=== PATIENT | female | born 1985 | race American Indian/Alaskan Native ===

== ENCOUNTER 2020-08-08 11:44 | Emergency (ER) | payer OTHER ==
[2020-08-08] MEDS ORDERED: Ondansetron 4 MG/2 ML SDV IVPUSH ONE (12:08)
[2020-08-08] MEDS ORDERED: Sodium Chloride 0.9% 1,000 ML IV ONE ×2 (12:08→13:06)
--- NOTE | 2020-08-08 12:14 | EDM.PDOC ---
ED HPI GENERAL MEDICAL PROBLEM - General Chief Complaint: Gastrointestinal Problem Stated Complaint: VOMITTING Time Seen by Provider: 08/08/20 11:45 Source of Information: Reports: Patient History Limitations: Reports: No Limitations - History of Present Illness INITIAL COMMENTS - FREE TEXT/NARRATIVE: HISTORY AND PHYSICAL: History of present illness: Patient is a 34-year-old female who presents to the emergency room with complaints of nausea and vomiting x2 days. She states she has not been able to take her antidepressant due to the nausea and vomiting and now feels "foggy". She states she has not been exposed to anyone who is been ill and has no current concerns of COVID. Patient denies any fever, chills, headache, change in vision, syncope or near syncope. Denies any chest pain, back pain, shortness of breath or cough. Denies any abdominal pain, diarrhea, constipation or dysuria. No concerns of . Has not noted any blood in urine or stool. Patient has been eating and drinking appropriately. Review of systems: As per history of present illness and below otherwise all systems reviewed and negative. Past medical history: As per history of present illness and as reviewed below otherwise noncontributory. Surgical history: As per history of present illness and as reviewed below otherwise noncontributory. Social history: See social history for further information Family history: As per history of present illness and as reviewed below otherwise noncontributory. Physical exam: General: Well developed and well nourished 34-year-old female. Alert and orientated x 3. Nontoxic in appearance and in no acute distress. Vital signs are stable and have been reviewed by me. Nursing notes were reviewed. HEENT: Atraumatic, normocephalic, pupils equal and reactive bilaterally, negative for conjunctival pallor or scleral icterus, mucous membranes moist, TMs normal bilaterally, throat clear, neck supple, nontender, trachea midline. No drooling or trismus noted. No meningeal signs. No hot potato voice noted. Lungs: Clear to auscultation, breath sounds equal bilaterally, chest nontender. Normal work of breathing, no accessory muscles used. Heart: S1S2, regular rate and rhythm without overt murmur Abdomen: Soft, nondistended, nontender. Negative for masses or hepatosplenomegaly. Negative for costovertebral tenderness. Pelvis: Stable nontender. Skin: Intact, warm, dry. No lesions or rashes noted. Hematologic: No petechiae or purpra. Mucosa appropriate color and normal nail bed color and refill. Extremities: Atraumatic, moves all extremities per self without difficulty or deficits, negative for cords or calf pain. Neurovascular unremarkable. Neuro: Awake, alert, oriented. Cranial nerves II through XII unremarkable. Cerebellum unremarkable. Motor and sensory unremarkable throughout. Exam nonfocal. Psychiatric: Mood and affect are appropriate. Normal thought process. Answering questions appropriately. Notes: Patient does have a slight leukocytosis with urinary tract infection and hypokalemia. She continues to have some mild nausea, will give her some Phenergan IM. EKG has been ordered. She continues to deny any abdominal pain, flank pain or concerning need for imaging at this time. I did offer the patient admission which she declines. She has been able to keep fluids down while here. I have spoken with the patient to discussed today's findings, in addition to providing specific details for plan of care. Reassessment at the time of disposition demonstrates that the patient is in no acute distress. The patient has remained stable throughout the entire ED visit and is without objective evidence for acute process requiring urgent intervention or hospitalization. The patient is stable for discharge, counseli cody was provided as , and we discussed in great detail signs and symptoms that would prompt them to return to the Emergency Department. Medication, follow up and supportive care measures were reviewed and discussed. Voices understanding and is agreeable to plan of care. Denies any further questions or concerns at this time. Diagnostics: CBC, CMP, UA, urine , lipase Therapeutics: IV fluid, Zofran, Phenergan, K-Dur Prescription: Zofran, Cipro Impression: UTI Hypokalemia Nausea/Vomiting Plan: 1. Today your lab work shows that you have a bladder infection and your potassium is low. You have been prescribed medicaitons for both of these. Phenergan suppository as needed for nausea/vomiting management. 2. These make sure you are drinking plenty of fluids to prevent dehydration. You can alternate Tylenol and/or ibuprofen as needed for pain management. 3. We encourage you to follow up with your primary care provider and/or recommended specialist in the next few days for re-evaluation and further care/management. If your symptoms should worsen, new symptoms develop or any of the signs and symptoms we discussed should arise please return to the emergency room or call 911 (if needed). Definitive disposition and diagnosis as appropriate pending reevaluation and review of above. Generalized Pain Score (Numeric/FACES): 1 - Related Data Allergies Allergy/AdvReac Type Severity Reaction Status Date / Time No Known Allergies Allergy Verified 08/08/20 12:06 Home Meds: Home Meds Budesonide/Formoterol [Symbicort 160-4.5 MCG] 1 inh PO DAILY 08/08/20 [History] Ciprofloxacin [Ciprofloxacin HCl] 500 mg PO BID 5 Days #10 tab 08/08/20 [Rx] Promethazine [Phenadoz] 25 mg RC BID PRN #4 supp 08/08/20 [Rx] Venlafaxine HCl [Venlafaxine HCl ER] 150 mg PO DAILY 08/08/20 [History] ED ROS GENERAL - Review of Systems Review Of Systems: Comprehensive ROS is negative, except as noted in HPI. ED EXAM, GI/ABD - Physical Exam Exam: See Below (See dictation) Course - Vital Signs Last Recorded V/S: Last Vital Signs Temp 97.6 F 08/08/20 12:07 Pulse 76 08/08/20 14:05 Resp 14 08/08/20 14:05 BP 147/101 H 08/08/20 14:05 Pulse Ox 100 08/08/20 14:05 - Orders/Labs/Meds Orders: Active Orders 24 hr Category Date Time Status CULTURE URINE [RM] Stat Lab 08/08/20 12:12 Received Labs: Laboratory Tests 08/08/20 08/08/20 08/08/20 Range/Units 12:12 12:12 12:20 WBC 13.70 H (4.0-11.0) K/uL RBC 5.62 (4.30-5.90) M/uL Hgb 16.0 (12.0-16.0) g/dL Hct 46.5 H (36.0-46.0) % MCV 82.7 (80.0-98.0) fL MCH 28.5 (27.0-32.0) pg MCHC 34.4 (31.0-37.0) g/dL RDW Std Deviation 40.8 (28.0-62.0) fl RDW Coeff of Rodger 14 (11.0-15.0) % Plt Count 591 H (150-400) K/uL MPV 9.50 (7.40-12.00) fL Neut % (Auto) 65.9 (48.0-80.0) % Lymph % (Auto) 24.7 (16.0-40.0) % Waller % (Auto) 7.4 (0.0-15.0) % Eos % (Auto) 1.8 (0.0-7.0) % Baso % (Auto) 0.2 (0.0-1.5) % Neut # (Auto) 9.0 H (1.4-5.7) K/uL Lymph # (Auto) 3.4 H (0.6-2.4) K/uL Waller # (Auto) 1.0 H (0.0-0.8) K/uL Eos # (Auto) 0.3 (0.0-0.7) K/uL Baso # (Auto) 0.0 (0.0-0.1) K/uL Sodium (136-145) mmol/L Potassium (3.5-5.1) mmol/L Chloride (98-107) mmol/L Carbon Dioxide (21.0-32.0) mmol/L BUN (7.0-18.0) mg/dL Creatinine (0.6-1.0) mg/dL Est Cr Clr Drug Dosing mL/min Estimated GFR (MDRD) ml/min Glucose (74-106) mg/dL Calcium (8.5-10.1) mg/dL Total Bilirubin (0.2-1.0) mg/dL AST (15-37) IU/L ALT (14-63) IU/L Alkaline Phosphatase (46-116) U/L Total Protein (6.4-8.2) g/dL Albumin (3.4-5.0) g/dL Globulin (2.6-4.0) g/dL Albumin/Globulin Ratio (0.9-1.6) Lipase (73-393) U/L Urine Color YELLOW Urine Appearance SLT CLOUDY Urine pH 6.0 (5.0-8.0) Ur Specific [place] >= 1.030 (1.001-1.035) Urine Protein 100 H (NEGATIVE) mg/dL Urine Glucose (UA) NEGATIVE (NEGATIVE) mg/dL Urine Ketones 40 H (NEGATIVE) mg/dL Urine Occult Blood SMALL H (NEGATIVE) Urine Nitrite POSITIVE H (NEGATIVE) Urine Bilirubin MODERATE H (NEGATIVE) Urine Ictotest NEGATIVE Urine Urobilinogen 2.0 H (<2.0) EU/dL Ur Leukocyte Esterase NEGATIVE (NEGATIVE) Urine RBC 0-2 (0-2/HPF) Urine WBC 0-2 (0-5/HPF) Ur Epithelial Cells FEW (NONE-FEW) Urine Bacteria 1+ H (NEGATIVE) Urine Mucus LIGHT (NONE-MOD) Urine HCG, Qual NEGATIVE (NEGATIVE) 08/08/20 Range/Units 12:20 WBC (4.0-11.0) K/uL RBC (4.30-5.90) M/uL Hgb (12.0-16.0) g/dL Hct (36.0-46.0) % MCV (80.0-98.0) fL MCH (27.0-32.0) pg MCHC (31.0-37.0) g/dL RDW Std Deviation (28.0-62.0) fl RDW Coeff of Rodger (11.0-15.0) % Plt Count (150-400) K/uL MPV (7.40-12.00) fL Neut % (Auto) (48.0-80.0) % Lymph % (Auto) (16.0-40.0) % Waller % (Auto) (0.0-15.0) % Eos % (Auto) (0.0-7.0) % Baso % (Auto) (0.0-1.5) % Neut # (Auto) (1.4-5.7) K/uL Lymph # (Auto) (0.6-2.4) K/uL Waller # (Auto) (0.0-0.8) K/uL Eos # (Auto) (0.0-0.7) K/uL Baso # (Auto) (0.0-0.1) K/uL Sodium 140 (136-145) mmol/L Potassium 3.0 L (3.5-5.1) mmol/L Chloride 99 (98-107) mmol/L Carbon Dioxide 23.3 (21.0-32.0) mmol/L BUN 13 (7.0-18.0) mg/dL Creatinine 1.2 H (0.6-1.0) mg/dL Est Cr Clr Drug Dosing 61.26 mL/min Estimated GFR (MDRD) 51.1 ml/min Glucose 134 H (74-106) mg/dL Calcium 10.0 (8.5-10.1) mg/dL Total Bilirubin 0.6 (0.2-1.0) mg/dL AST 104 H (15-37) IU/L ALT 176 H (14-63) IU/L Alkaline Phosphatase 154 H (46-116) U/L Total Protein 8.7 H (6.4-8.2) g/dL Albumin 4.7 (3.4-5.0) g/dL Globulin 4.0 (2.6-4.0) g/dL Albumin/Globulin Ratio 1.2 (0.9-1.6) Lipase 68 L (73-393) U/L Urine Color Urine Appearance Urine pH (5.0-8.0) Ur Specific [place] (1.001-1.035) Urine Protein (NEGATIVE) mg/dL Urine Glucose (UA) (NEGATIVE) mg/dL Urine Ketones (NEGATIVE) mg/dL Urine Occult Blood (NEGATIVE) Urine Nitrite (NEGATIVE) Urine Bilirubin (NEGATIVE) Urine Ictotest Urine Urobilinogen (<2.0) EU/dL Ur Leukocyte Esterase (NEGATIVE) Urine RBC (0-2/HPF) Urine WBC (0-5/HPF) Ur Epithelial Cells (NONE-FEW) Urine Bacteria (NEGATIVE) Urine Mucus (NONE-MOD) Urine HCG, Qual (NEGATIVE) Meds: Medications Discontinued Medications Generic Name Dose Route Start Last Admin Trade Name Vasyl PRN Reason Stop Dose Admin Sodium Chloride 1,000 mls @ 999 mls/hr 08/08/20 12:08 08/08/20 12:16 Normal Saline IV 08/08/20 13:08 999 mls/hr STAT ONE Administration Ceftriaxone Sodium/Dextrose 1 50 mls @ 100 mls/hr 08/08/20 12:58 08/08/20 13:17 gm/ Premix IV 08/08/20 13:27 100 mls/hr ONETIME ONE Administration Sodium Chloride 1,000 mls @ 999 mls/hr 08/08/20 13:06 08/08/20 13:09 Normal Saline IV 08/08/20 14:06 999 mls/hr STAT ONE Administration Ondansetron HCl 4 mg 08/08/20 12:08 08/08/20 12:16 Zofran IVPUSH 08/08/20 12:09 4 mg ONETIME ONE Administration Potassium Chloride 40 meq 08/08/20 13:03 08/08/20 13:50 Klor-Con M20 PO 08/08/20 13:04 40 meq ONETIME ONE Administration Promethazine HCl 12.5 mg 08/08/20 13:02 08/08/20 13:16 Phenergan IM 08/08/20 13:03 12.5 mg ONETIME ONE Administration Departure - Departure Time of Disposition: 13:22 Disposition: Home, Self-Care 01 Clinical Impression: UTI, Urinary tract infectious disease, Hypokalemia, Nausea and vomiting in adult - Discharge Information Prescriptions: Ciprofloxacin [Ciprofloxacin HCl] 500 mg PO BID 5 Days #10 tab Promethazine [Phenadoz] 25 mg RC BID PRN #4 supp PRN Reason: Nausea Instructions: Urinary Tract Infection, Adult, Nausea and Vomiting, Adult Referrals: Mary Avalos MD [Primary Care Provider] - Forms: ED Department Discharge Additional Instructions: The following information is given to patients seen in the emergency department who are being discharged to home. This information is to outline your options for follow-up care. We provide all patients seen in our emergency department with a follow-up referral. The need for follow-up, as well as the timing and circumstances, are variable depending upon the specifics of your emergency department visit. If you don't have a primary care physician on staff, we will provide you with a referral. We always advise you to contact your personal physician following an emergency department visit to inform them of the circumstance of the visit and for follow-up with them and/or the need for any referrals to a consulting specialist. The emergency department will also refer you to a specialist when appropriate. This referral assures that you have the opportunity for follow-up care with a specialist. All of these measure are taken in an effort to provide you with optimal care, which includes your follow-up. Under all circumstances we always encourage you to contact your private physician who remains a resource for coordinating your care. When calling for follow-up care, please make the office aware that this follow-up is from your recent emergency room visit. If for any reason you are refused follow-up, please contact the [facility] Emergency Department at and asked to speak to the emergency department charge nurse. [facility] [address] [place] [address] [facility] [address] [place] [id number] Thank you for choosing the [facility] emergency department in [place] for your medical needs today. It was a pleasure caring for you. Today you were seen in the emergency department for nausea and vomiting. 1. Today your lab work shows that you have a bladder infection and your potassium is low. You have been prescribed medicaitons for both of these. Phenergan suppository as needed for nausea/vomiting management. 2. These make sure you are drinking plenty of fluids to prevent dehydration. You can alternate Tylenol and/or ibuprofen as needed for pain management. 3. We encourage you to follow up with your primary care provider and/or recommended specialist in the next few days for re-evaluation and further care/management. If your symptoms should worsen, new symptoms develop or any of the signs and symptoms we discussed should arise please return to the emergency room or call 911 (if needed). Sepsis Event Note (ED) - Focused Exam Vital Signs: Vital Signs Temp Pulse Resp BP Pulse Ox 08/08/20 14:05 76 14 147/101 H 100 08/08/20 12:07 97.6 F 101 H 14 138/104 H 98 - My Orders Last 24 Hours: My Active Orders 08/08/20 12:12 CULTURE URINE [RM] Stat - Assessment/Plan Last 24 Hours: My Active Orders 08/08/20 12:12 CULTURE URINE [RM] Stat
[2020-08-08 12:47] LABS: CARBON DIOXIDE,CO2 23.3 mmol/L (21.0-32.0)
[2020-08-08] MEDS ORDERED: cefTRIAXone 1 GM in Premix Bag 1 BAG IV ONE (12:58)
[2020-08-08] MEDS ORDERED: Promethazine 25 MG/ML SDV IM ONE (13:02)
[2020-08-08] MEDS ORDERED: Potassium Chloride 20 MEQ Tab.ER PO ONE (13:03)
== END 2020-08-08 14:06 | disposition home or self-care (01) ==
LOC: MW.ED 11:44
DX: N39.0 Urinary tract infection, site not specified (principal); E87.6 Hypokalemia; R11.2 Nausea with vomiting, unspecified; D72.829 Elevated white blood cell count, unspecified
CPT/HCPCS: 36415; 80053; 81001; 81025; 83690; 85025; 87086; 93005; 96361; 96365; 96372; 96375; 99284; A9270; J0696; J2405; J2550; J7030; 99283

== ENCOUNTER 2021-05-06 21:53 | Emergency (ER) | payer OTHER ==
--- NOTE | 2021-05-06 22:41 | EDM.PDOCBH ---
ED HPI GENERAL MEDICAL PROBLEM - General Chief Complaint: Behavioral/Psych Stated Complaint: MENTAL HEALTH Time Seen by Provider: 05/06/21 22:13 Source of Information: Reports: Patient History Limitations: Reports: No Limitations - History of Present Illness INITIAL COMMENTS - FREE TEXT/NARRATIVE: Patient is a 35-year-old female who presents today in police custody for suicide ideation. They state that she went to the train today and laid on a transfer harm her self and when police came the patient tried to drive off and get away. Patient states that currently she does not have any SI but earlier had thoughts when harm her self. She has attempted to commit suicide in the past by overdosing on naproxen. Patient denies taking any drugs or alcohol today. Patient denies any medical complaints is not hearing any voices currently. - Related Data Allergies Allergy/AdvReac Type Severity Reaction Status Date / Time clavulanic acid Allergy Other Verified 05/06/21 22:12 Home Meds: Home Meds Budesonide/Formoterol [Symbicort 160-4.5 MCG] 1 inh PO DAILY 08/08/20 [History] Venlafaxine HCl [Venlafaxine HCl ER] 225 mg PO DAILY 08/08/20 [History] Past Medical History Respiratory History: Reports: Asthma [employer] DIRECTOR History: Reports: Other (See Below) Other [employer] AND HEARING [employer]IN[facility] DIRECTOR History: Right fallopian tube and ovary removal Psychiatric History: Reports: Anxiety, Depression, Suicide Attempt, Suicidal Ideation Other Psychiatric History: found [place] to train tracks - Infectious Disease History Infectious Disease History: Reports: None Social & Family History - Family History Family Medical History: No Pertinent Family History - Tobacco Use Tobacco Use Status *Q: Never Tobacco User - Caffeine Use Caffeine Use: Reports: Coffee - Recreational Drug Use Recreational Drug Use: Yes Drug Use in Last 12 Months: Yes Recreational Drug Type: Reports: Marijuana/Hashish ED ROS GENERAL - Review of Systems Review Of Systems: See Below Constitutional: Reports: No Symptoms HEENT: Reports: No Symptoms Respiratory: Reports: No Symptoms Cardiovascular: Reports: No Symptoms Endocrine: Reports: No Symptoms GI/Abdominal: Reports: No Symptoms : Reports: No Symptoms Musculoskeletal: Reports: No Symptoms Skin: Reports: No Symptoms Neurological: Reports: No Symptoms Psychiatric: Reports: Suicidal Ideation Hematologic/Lymphatic: Reports: No Symptoms Immunologic: Reports: No Symptoms ED EXAM, BEHAVIORAL HEALTH - Physical Exam Exam: See Below Exam Limited By: No Limitations General Appearance: Alert, WD/WN, No Apparent Distress Head: Atraumatic Respiratory/Chest: No Respiratory Distress, Lungs Clear, Normal Breath Sounds Cardiovascular: Normal Peripheral Pulses, Regular Rate, Rhythm GI/Abdominal: Normal Bowel Sounds, Soft, Non-Tender Extremities: Normal Inspection, Normal Range of Motion Neurological: Alert, Normal Mood/Affect, CN II-XII Intact, Normal Cognition, Normal Gait Psychiatric: Alert, Normal Affect, Normal Cognition, Normal Mood COURSE, BEHAVIORAL HEALTH COMP - Course Vital Signs: Last Vital Signs Temp 97 F 05/06/21 22:08 Pulse 90 05/06/21 23:00 Resp 18 05/06/21 23:00 BP 127/92 H 05/06/21 23:00 Pulse Ox 98 05/06/21 23:00 Orders, Labs, Meds: Active Orders 24 hr Category Date Time Status CORONAVIRUS COVID-19 ADRIÁN [MOLEC] Stat Lab 05/06/21 23:17 Received Laboratory Tests 05/06/21 05/06/21 05/06/21 Range/Units 22:17 22:17 22:22 WBC 12.14 H (4.0-11.0) K/uL RBC 4.88 (4.30-5.90) M/uL Hgb 14.1 (12.0-16.0) g/dL Hct 42.2 (36.0-46.0) % MCV 86.5 (80.0-98.0) fL MCH 28.9 (27.0-32.0) pg MCHC 33.4 (31.0-37.0) g/dL RDW Std Deviation 42.8 (28.0-62.0) fl RDW Coeff of Rodger 14 (11.0-15.0) % Plt Count 478 H (150-400) K/uL MPV 9.50 (7.40-12.00) fL Neut % (Auto) 48.7 (48.0-80.0) % Lymph % (Auto) 36.8 (16.0-40.0) % [place] % (Auto) 5.8 (0.0-15.0) % Eos % (Auto) 8.2 H (0.0-7.0) % Baso % (Auto) 0.5 (0.0-1.5) % Neut # (Auto) 5.9 H (1.4-5.7) K/uL Lymph # (Auto) 4.5 H (0.6-2.4) K/uL [place] # (Auto) 0.7 (0.0-0.8) K/uL Eos # (Auto) 1.0 H (0.0-0.7) K/uL Baso # (Auto) 0.1 (0.0-0.1) K/uL Nucleated RBC % 0.0 /100WBC Nucleated RBCs # 0 K/uL Sodium (136-145) mmol/L Potassium (3.5-5.1) mmol/L Chloride (98-107) mmol/L Carbon Dioxide (21.0-32.0) mmol/L BUN (7.0-18.0) mg/dL Creatinine (0.6-1.0) mg/dL Est Cr Clr Drug Dosing Estimated GFR (MDRD) ml/min Glucose (74-106) mg/dL Calcium (8.5-10.1) mg/dL Phosphorus (2.6-4.7) mg/dL Magnesium (1.8-2.4) mg/dL Total Bilirubin (0.2-1.0) mg/dL AST (15-37) IU/L ALT (14-63) IU/L Alkaline Phosphatase (46-116) U/L Total Protein (6.4-8.2) g/dL Albumin (3.4-5.0) g/dL Globulin (2.6-4.0) g/dL Albumin/Globulin Ratio (0.9-1.6) Urine HCG, Qual NEGATIVE (NEGATIVE) Salicylates (0-20) mg/dL Urine Opiates Screen NEGATIVE (NEGATIVE) Ur Oxycodone Screen NEGATIVE (NEGATIVE) Urine Methadone Screen NEGATIVE (NEGATIVE) Acetaminophen ug/mL Ur Barbiturates Screen NEGATIVE (NEGATIVE) Ur Phencyclidine Scrn NEGATIVE (NEGATIVE) Ur Amphetamine Screen NEGATIVE (NEGATIVE) U Methamphetamines Scrn NEGATIVE (NEGATIVE) U Benzodiazepines Scrn POSITIVE (NEGATIVE) U Cocaine Metab Screen NEGATIVE (NEGATIVE) U Marijuana (THC) Screen POSITIVE (NEGATIVE) Ethyl Alcohol mg/dL 05/06/21 Range/Units 22:22 WBC (4.0-11.0) K/uL RBC (4.30-5.90) M/uL Hgb (12.0-16.0) g/dL Hct (36.0-46.0) % MCV (80.0-98.0) fL MCH (27.0-32.0) pg MCHC (31.0-37.0) g/dL RDW Std Deviation (28.0-62.0) fl RDW Coeff of Rodger (11.0-15.0) % Plt Count (150-400) K/uL MPV (7.40-12.00) fL Neut % (Auto) (48.0-80.0) % Lymph % (Auto) (16.0-40.0) % [place] % (Auto) (0.0-15.0) % Eos % (Auto) (0.0-7.0) % Baso % (Auto) (0.0-1.5) % Neut # (Auto) (1.4-5.7) K/uL Lymph # (Auto) (0.6-2.4) K/uL [place] # (Auto) (0.0-0.8) K/uL Eos # (Auto) (0.0-0.7) K/uL Baso # (Auto) (0.0-0.1) K/uL Nucleated RBC % /100WBC Nucleated RBCs # K/uL Sodium 137 (136-145) mmol/L Potassium 3.3 L (3.5-5.1) mmol/L Chloride 101 (98-107) mmol/L Carbon Dioxide 26.3 (21.0-32.0) mmol/L BUN 10 (7.0-18.0) mg/dL Creatinine 1.0 (0.6-1.0) mg/dL Est Cr Clr Drug Dosing TNP Estimated GFR (MDRD) > 60.0 ml/min Glucose 86 (74-106) mg/dL Calcium 9.1 (8.5-10.1) mg/dL Phosphorus 3.4 (2.6-4.7) mg/dL Magnesium 2.2 (1.8-2.4) mg/dL Total Bilirubin 0.2 (0.2-1.0) mg/dL AST 37 (15-37) IU/L ALT 56 (14-63) IU/L Alkaline Phosphatase 132 H (46-116) U/L Total Protein 8.0 (6.4-8.2) g/dL Albumin 3.7 (3.4-5.0) g/dL Globulin 4.3 H (2.6-4.0) g/dL Albumin/Globulin Ratio 0.9 (0.9-1.6) Urine HCG, Qual (NEGATIVE) Salicylates 5.1 (0-20) mg/dL Urine Opiates Screen (NEGATIVE) Ur Oxycodone Screen (NEGATIVE) Urine Methadone Screen (NEGATIVE) Acetaminophen <2.0 ug/mL Ur Barbiturates Screen (NEGATIVE) Ur Phencyclidine Scrn (NEGATIVE) Ur Amphetamine Screen (NEGATIVE) U Methamphetamines Scrn (NEGATIVE) U Benzodiazepines Scrn (NEGATIVE) U Cocaine Metab Screen (NEGATIVE) U Marijuana (THC) Screen (NEGATIVE) Ethyl Alcohol <3 mg/dL Medications Discontinued Medications Generic Name Dose Route Start Last Admin Trade Name Freq PRN Reason Stop Dose Admin Ondansetron HCl 4 mg 05/06/21 23:23 Ondansetron 4 Mg Tab.Dis PO 05/06/21 23:24 ONETIME ONE Re-Assessment/Re-Exam: Patient's been accepted to [facility] by Dr. Florentino. Patient will be sent over. Departure - Departure Time of Disposition: 23:27 Disposition: DC/Tfer to Psych Hosp/Unit 65 Condition: Good Clinical Impression: Suicidal ideation - Discharge Information *PRESCRIPTION DRUG MONITORING PROGRAM REVIEWED*: Not Applicable *COPY OF PRESCRIPTION DRUG MONITORING REPORT IN PATIENT RUPESH: Not Applicable Instructions: Suicidal Feelings: How to Help Yourself Referrals: PCP,None [Primary Care Provider] - Forms: ED Department Discharge Sepsis Event Note (ED) - Evaluation Sepsis Screening Result: No Definite Risk - Focused Exam Vital Signs: Vital Signs Temp Pulse Resp BP Pulse Ox 05/06/21 23:00 90 18 127/92 H 98 05/06/21 22:30 97 20 139/90 100 05/06/21 22:08 97 F 105 H 20 132/100 H 100 - My Orders Last 24 Hours: My Active Orders 05/06/21 23:17 CORONAVIRUS COVID-19 ADRIÁN [MOLEC] Stat - Assessment/Plan Last 24 Hours: My Active Orders 05/06/21 23:17 CORONAVIRUS COVID-19 ADRIÁN [MOLEC] Stat Plan: Patient is a 35-year-old female presents today in police custody. Patient has some SI earlier she is on the train tracks to [place] her self. Patient has no physical complaints. Patient was medically cleared and sent for psychiatric treatment.
[2021-05-06 22:48] LABS: ACETAMINOPHEN <2.0 ug/mL; BLOOD UREA NITROGEN,BUN 10 mg/dL (7.0-18.0); CARBON DIOXIDE,CO2 26.3 mmol/L (21.0-32.0); CHLORIDE,CL 101 mmol/L (98-107); GLUCOSE RANDOM 86 mg/dL (74-106); POTASSIUM,K 3.3 mmol/L (3.5-5.1); SODIUM,NA 137 mmol/L (136-145)
[2021-05-06] MEDS ORDERED: Ondansetron 4 MG Tab.DIS PO ONE (23:23)
== END 2021-05-07 00:15 ==
LOC: MW.ED 21:53
DX: R45.851 Suicidal ideations (principal); Z88.1 Allergy status to other antibiotic agents; Z20.822 Contact with and (suspected) exposure to COVID-19
CPT/HCPCS: 36415; 80053; 80143; 80179; 80305; 80307; 81025; 83735; 84100; 85025; 87635; 99285; A9270; 99284; U0002

== ENCOUNTER 2022-09-23 17:44 | Emergency (ER) | payer OTHER ==
[~2022-09-23 17:44] MED LIST: Rocuronium 100 MG/10 ML MDV IV ONE
[2022-09-23] MEDS ORDERED: Sodium Chloride 0.9% 10 ML Syringe FLUSH PRN (17:45)
[2022-09-23] MEDS ORDERED: Sodium Chloride 0.9% 2.5 ML Syringe FLUSH PRN (17:45)
[2022-09-23] MEDS ORDERED: Norepinephrine 4 MG in Dextrose 5% in Water 246 ML IV SCH ×4 (18:00→18:01)
[2022-09-23] MEDS ORDERED: Sodium Chloride 0.9% 1,000 ML IV ONE ×2 (18:00→18:15)
[2022-09-23] MEDS ORDERED: Etomidate 2 MG/ML 20 ML SDV IVPUSH ONE (18:09)
[2022-09-23] MEDS ORDERED: Magnesium Sulfate (4.06 MEQ/ML) 5 GM/10 ML SDV IV STA (18:38)
[2022-09-23 18:40] LABS: BLOOD UREA NITROGEN,BUN 17 mg/dL (7.0-18.0); CARBON DIOXIDE,CO2 21.6 mmol/L (21.0-32.0); CHLORIDE,CL 106 mmol/L (98-107); ESTIMATED GFR 60 mL/min (>60); GLUCOSE RANDOM 132 mg/dL (74-106); POTASSIUM,K 3.3 mmol/L (3.5-5.1); SODIUM,NA 140 mmol/L (136-145)
[2022-09-23] MEDS ORDERED: Magnesium Sulfate/Water 100 ML ONE (18:40)
[2022-09-23 18:42] LABS: ACETAMINOPHEN 21.6 ug/mL
[2022-09-23] MEDS ORDERED: Magnesium Sulfate/Water 4 GM in Premix Bag 1 BAG IV ONE (18:43)
[2022-09-23] MEDS ORDERED: Potassium Chloride 20 MEQ in Premix Bag 1 BAG IV ONE (18:48)
== END 2022-09-23 19:00 ==
LOC: MW.ED 17:44
DX: T43.221A Poisoning by selective serotonin reuptake inhibitors, accidental (unintentional), initial encounter (principal); Z88.1 Allergy status to other antibiotic agents
CPT/HCPCS: 31500; 36415; 43752; 51702; 71045; 80053; 80143; 80179; 80305; 80307; 82140; 82803; 83605; 83735; 85025; 93005; 96365; 96375; 99285; J3475; J3480; J3490; J7030; J7060